=== PATIENT | female | born 1965 | race Caucasian/White ===

== ENCOUNTER 2023-03-27 07:47 | Day surgery (SDC) | payer BC ==
[2023-03-23 10:23] VITALS: BMI 37.8
[2023-03-27] MEDS ORDERED: Scopolamine 1.5 mg/72 hour Patch ONE (08:31)
[2023-03-27] MEDS ORDERED: EPINEPHrine 1 MG/ML AMP ONE (10:05)
[2023-03-27] MEDS ORDERED: Bupivacaine 0.25% HCL 30 ML VIAL ONE (10:05)
[2023-03-27] MEDS ORDERED: Midazolam HCl 2 mg/2 ml Vial ONE (12:37)
[2023-03-27] MEDS ORDERED: Fentanyl 250 MCG/5 ML VIAL ONE (13:08)
[2023-03-27] MEDS ORDERED: SUGAMMADEX SODIUM 200 MG/2 ML VIAL ONE (13:09)
[2023-03-27] MEDS ORDERED: Sodium Chloride 0.9% 100 ML ONE (13:11)
[2023-03-27] MEDS ORDERED: cefOXitin 2 GM VIAL ONE (13:11)
[2023-03-27] MEDS ORDERED: ePHEDrine Sulfate 50 MG/10 ML VIAL ONE (13:23)
[2023-03-27] MEDS ORDERED: Ondansetron PF 4 MG/2 ML Vial ONE (13:23)
[2023-03-27] MEDS ORDERED: Lidocaine 1% PF 5 ML VIAL ONE (13:23)
[2023-03-27] MEDS ORDERED: Dexamethasone 20 MG/5 ML VIAL ONE (13:23)
[2023-03-27] MEDS ORDERED: Rocuronium Bromide 10 MG/ML (10ML VIAL) ONE (13:23)
[2023-03-27] MEDS ORDERED: PROPOFOL 200 MG/20 ML VIAL ONE (13:23)
[2023-03-27] MEDS ORDERED: Ondansetron HCl/PF 4 MG/2 ML Vial IVP PRN (13:56)
[2023-03-27] MEDS ORDERED: HYDROmorphone 2 MG/ML VIAL SLOW IVP PRN (13:56)
[2023-03-27] MEDS ORDERED: Meperidine HCl/PF 25 MG/ML VIAL SLOW IVP PRN (13:56)
[2023-03-27] MEDS ORDERED: Promethazine HCl 25 MG/ML VIAL IM PRN (13:56)
== END 2023-03-27 15:35 | disposition home or self-care (01) ==
LOC: SDC 07:47
PROVIDERS: ATTEND Surgery
PROC: 0DP64CZ Removal of Extraluminal Device from Stomach, Percutaneous Endoscopic Approach (ICD-10-PCS; principal; 2023-03-27)
DX: K95.09 Other complications of gastric band procedure (principal); K21.9 Gastro-esophageal reflux disease without esophagitis; I12.9 Hypertensive chronic kidney disease with stage 1 through stage 4 chronic kidney disease, or unspecified chronic kidney disease; N18.4 Chronic kidney disease, stage 4 (severe); G47.30 Sleep apnea, unspecified; E78.2 Mixed hyperlipidemia; I25.10 Atherosclerotic heart disease of native coronary artery without angina pectoris; J45.909 Unspecified asthma, uncomplicated; D64.9 Anemia, unspecified; E66.01 Morbid (severe) obesity due to excess calories; Z68.39 Body mass index [BMI] 39.0-39.9, adult; Z98.84 Bariatric surgery status; Z79.899 Other long term (current) drug therapy; Z90.49 Acquired absence of other specified parts of digestive tract
CPT/HCPCS: J0171; J0694; J1100; J1650; J2250; J2405; J2704; J3010; J3490; S0020